=== PATIENT | male | born 1985 | race Caucasian/White ===

== ENCOUNTER 2018-06-09 04:28 | Emergency (ER) | payer BC ==
[~2018-06-09] VITALS: Ht 180.3 cm; Wt 93.0 kg
[2018-06-09 04:33] VITALS: Ht 180.3 cm; Wt 93.0 kg
[2018-06-09 05:38] VITALS: BP 122/76
== END 2018-06-09 05:38 | disposition home or self-care (01) ==
LOC: ED 04:28
DX: K21.9 Gastro-esophageal reflux disease without esophagitis (principal); R07.89 Other chest pain

== ENCOUNTER 2018-07-01 06:34 | Emergency (ER) | payer BC ==
[~2018-07-01] VITALS: Ht 180.3 cm; Wt 96.8 kg
[2018-07-01 06:41] VITALS: Ht 180.3 cm; Wt 96.8 kg
[2018-07-01 07:10] VITALS: BP 128/82
== END 2018-07-01 07:30 | disposition home or self-care (01) ==
LOC: ED 06:34
DX: L29.9 Pruritus, unspecified (principal); L98.9 Disorder of the skin and subcutaneous tissue, unspecified; Z98.890 Other specified postprocedural states

== ENCOUNTER 2018-11-23 00:23 | Emergency (ER) | payer BC ==
[~2018-11-23] VITALS: Ht 180.3 cm; Wt 106.6 kg
[2018-11-23 00:27] VITALS: Ht 180.3 cm; Wt 106.6 kg
[2018-11-23 01:15] VITALS: BP 120/87
== END 2018-11-23 01:15 | disposition home or self-care (01) ==
LOC: ED 00:23
DX: T21.23XA Burn of second degree of upper back, initial encounter (principal); T22.252A Burn of second degree of left shoulder, initial encounter; T31.0 Burns involving less than 10% of body surface; X08.8XXA Exposure to other specified smoke, fire and flames, initial encounter; Y93.89 Activity, other specified; Y92.89 Other specified places as the place of occurrence of the external cause; Y99.8 Other external cause status

== ENCOUNTER 2019-05-08 | Emergency (ER) | payer BC ==
[~2019-05-08] VITALS: Ht 172.7 cm; Wt 90.7 kg
[2019-05-08 00:05] VITALS: BP 148/83; Ht 172.7 cm; Wt 90.7 kg
== END 2019-05-08 01:24 | disposition left against medical advice (07) ==
LOC: ED
DX: Z53.21 Procedure and treatment not carried out due to patient leaving prior to being seen by health care provider (principal)

== ENCOUNTER 2019-05-08 09:10 | Emergency (ER) | payer BC ==
[~2019-05-08] VITALS: Ht 180.3 cm; Wt 105.7 kg
[2019-05-08 09:17] VITALS: Ht 180.3 cm; Wt 105.7 kg
[2019-05-08 10:51] VITALS: BP 129/70
== END 2019-05-08 10:49 | disposition home or self-care (01) ==
LOC: ED 09:10
DX: S61.412A Laceration without foreign body of left hand, initial encounter (principal); Z98.890 Other specified postprocedural states; W26.8XXA Contact with other sharp object(s), not elsewhere classified, initial encounter; Y93.89 Activity, other specified; Y92.89 Other specified places as the place of occurrence of the external cause; Y99.8 Other external cause status
CPT/HCPCS: 90715; J2001